=== PATIENT | male | born 1955 | race Caucasian/White ===

== ENCOUNTER 2023-12-23 15:05 | Emergency (ER) | payer MEDICARE, OTHER ==
[2023-12-23] MEDS: HYDROmorphone 1 MG/ML Syringe IM ONE ×2 (15:53→18:25)
== END 2023-12-23 19:08 ==
LOC: JP.ED 15:05
DX: S62.611B Displaced fracture of proximal phalanx of left index finger, initial encounter for open fracture (principal); Z90.49 Acquired absence of other specified parts of digestive tract; W31.2XXA Contact with powered woodworking and forming machines, initial encounter
CPT/HCPCS: 73130; 96372; 99284; J1170